=== PATIENT | male | born 1965 | race Caucasian/White ===

== ENCOUNTER 2021-01-09 13:32 | Emergency (ER) | payer MEDICAID ==
[~2021-01-09] VITALS: Ht 180.3 cm; Wt 59.0 kg
[2021-01-09 15:24] LABS: BASOPHILS % 0.6 % (0.0-2.0); EOSINOPHILS % 3.6 % (0.0-5.0); HEMATOCRIT. 37.9 % (42.0-52.0); HEMOGLOBIN. 12.4 g/dL (14.0-18.0); LYMPHOCYTES % 18.2 % (20.0-50.0); MEAN CORPUSCULAR HEMOGLOBIN 28.9 pg (28.0-32.0); MEAN PLATELET VOLUME 6.5 fl (7.4-10.4); MONOCYTES % 8.1 % (2.0-8.0); NEUTROPHILS % 69.5 % (40.0-76.0); PLATELET 221 x1000/uL (130-400); RED BLOOD CELL COUNT 4.31 mill/uL (4.7-6.1); RED CELL DISTRIBUTION WIDTH 13.6 % (11.6-14.6)
[2021-01-09 15:28] LABS: CHLORIDE 104 mEq/L (98-107)
[2021-01-09 15:32] LABS: CLARITY URINE CLEAR (CLEAR); COLOR URINE YELLOW (YELLOW); KETONES URINE TRACE (NEGATIVE); LEUKOCYTE ESTERASE URINE NEGATIVE (NEGATIVE); NITRITE URINE NEGATIVE (NEGATIVE); OCCULT BLOOD URINE NEGATIVE (NEGATIVE); PH URINE 5.5 (4.5-8.0); PROTEIN URINE NEGATIVE (NEGATIVE); SPECIFIC GRAVITY URINE 1.032 (1.005-1.030); UROBILINOGEN URINE 0.2 E.U./dL (0.2-1.0)
[2021-01-09 15:45] LABS: *AMPHETAMINES SCREEN URINE PRESUMTIVE POSITIVE (NEGATIVE); *BARBITURATES SCREEN URINE NEGATIVE (NEGATIVE); *BENZODIAZEPINES SCREEN URINE NEGATIVE (NEGATIVE); *COCAINE SCREEN URINE NEGATIVE (NEGATIVE); METHADONE URINE SCREEN NEGATIVE (NEGATIVE); OPIATES URINE SCREEN PRESUMTIVE POSITIVE (NEGATIVE)
[2021-01-09 15:46] LABS: CANNABINOID URINE SCREEN NEGATIVE (NEGATIVE); PHENCYCLIDINE URINE SCREEN NEGATIVE (NEGATIVE)
[2021-01-09 15:59] LABS: HEPATITIS B SURFACE ANTIGEN NEGATIVE
[2021-01-09 16:28] LABS: HEPATITIS A AB IGM NEGATIVE (NEGATIVE)
[2021-01-09 18:08] VITALS: BP 125/78
== END 2021-01-09 19:44 | disposition home or self-care (01) ==
LOC: ER 13:55
DX: F15.221 Other stimulant dependence with intoxication delirium (principal); F41.9 Anxiety disorder, unspecified; F12.10 Cannabis abuse, uncomplicated; F16.10 Hallucinogen abuse, uncomplicated; F17.210 Nicotine dependence, cigarettes, uncomplicated; E16.2 Hypoglycemia, unspecified; R26.9 Unspecified abnormalities of gait and mobility; D63.8 Anemia in other chronic diseases classified elsewhere; R60.0 Localized edema; F11.10 Opioid abuse, uncomplicated; M19.90 Unspecified osteoarthritis, unspecified site; F32.9 Major depressive disorder, single episode, unspecified; Z91.041 Radiographic dye allergy status
CPT/HCPCS: 36415; 71045; 80053; 80305; 81003; 82140; 82962; 83880; 84484; 85025; 85651; 86705; 86709; 86803; 87340; 93005; 99285; Z7610